=== PATIENT | female | born 1965 | race Caucasian/White ===

== ENCOUNTER 2018-07-21 10:15 | Day surgery (SDC) | payer OTHER ==
[~2018-07-21 10:15] MED LIST: Desflurane 240 ML Bottle ONE; Lactated Ringers 1,000 ML IV SCH; Sodium Chloride 0.9% 10 ML Syringe FLUSH PRN; Sodium Chloride 0.9% 2.5 ML Syringe FLUSH PRN
--- NOTE | 2018-07-21 11:25 | PCM.PREANE ---
Preanesthetic Assessment - Procedure Proposed Procedure: Colonoscopy - Anesthesia/Transfusion/Family Hx Anesthesia History: Prior Anesthesia Without Reaction Family History of Anesthesia Reaction: No Transfusion History: No Prior Transfusion(s) Intubation History: Unknown - Review of Systems General: No Symptoms Pulmonary: No Symptoms Cardiovascular: No Symptoms Gastrointestinal: Other (GERD) Neurological: No Symptoms Other: Reports: None - Physical Assessment NPO Status Date: 07/21/18 NPO Status Time: 07:30 O2 Sat by Pulse Oximetry: 98 Respiratory Rate: 16 Vital Signs: Last Vital Signs Temp 96.6 F 07/21/18 10:30 Pulse 68 07/21/18 10:30 Resp 16 07/21/18 10:30 BP 119/76 07/21/18 10:30 Pulse Ox 98 07/21/18 10:30 Height: 5 ft 6.5 in Weight: 153 lb ASA Class: 2 Mental Status: Alert & Oriented x3 Airway Class: Mallampati = 1 Dentition: Reports: Normal Dentition Thyro-Mental Finger Breadths: 3 Mouth Opening Finger Breadths: 3 ROM/Head Extension: Limited/Partial Lungs: Clear to Auscultation, Normal Respiratory Effort Cardiovascular: Regular Rate, Regular Rhythm, No Murmurs - Allergies Allergies/Adverse Reactions: Allergies Allergy/AdvReac Type Severity Reaction Status Date / Time breads Allergy Sneezing Uncoded 07/15/18 13:08 - Blood Blood Available: No Product(s) Available: None - Anesthesia Plan Pre-Op Medication Ordered: None - Acknowledgements Anesthesia Type Planned: MAC Pt an Appropriate Candidate for the Planned Anesthesia: Yes Alternatives and Risks of Anesthesia Discussed w Pt/Guardian: Yes Pt/Guardian Understands and Agrees with Anesthesia Plan: Yes PreAnesthesia Questionnaire HEENT History: Reports: Allergic Rhinitis Gastrointestinal History: Reports: GERD Genitourinary History: Reports: None TITLE MANAGER History: Reports: Hematologic History: Reports: Other (See Below) Other Hematologic History: low platelet count during - Past Surgical History Head Surgeries/Procedures: Reports: None HEENT Surgical History: Reports: None GI Surgical History: Reports: Cholecystectomy Female Surgical History: Reports: Section - SUBSTANCE USE Smoking Status *Q: Never Smoker Recreational Drug Use History: No - HOME MEDS Home Medications: Home Meds Multivitamin [Multivitamins] 1 tab PO DAILY 07/15/18 [History] Omeprazole Magnesium [Prilosec Otc] 20 mg PO ASDIRECTED PRN 07/15/18 [History] - CURRENT (IN HOUSE) MEDS Current Meds: Current Medications Lactated Ringer's (Ringers, Lactated) 1,000 mls @ 125 mls/hr IV ASDIRECTED KEVIN Last Admin: 07/21/18 10:45 Dose: 125 mls/hr Sodium Chloride (Saline Flush) 10 ml FLUSH ASDIRECTED PRN PRN Reason: Keep Vein Open Sodium Chloride (Saline Flush) 2.5 ml FLUSH ASDIRECTED PRN PRN Reason: Keep Vein Open Sodium Chloride (Saline Flush) 10 ml FLUSH ASDIRECTED PRN PRN Reason: Keep Vein Open Sodium Chloride (Saline Flush) 2.5 ml FLUSH ASDIRECTED PRN PRN Reason: Keep Vein Open Discontinued Medications Desflurane (Suprane) Confirm Administered Dose 240 ml .ROUTE .STK-MED ONE Stop: 07/20/18 07:11
[2018-07-21] MEDS ORDERED: Propofol 200 MG/20 ML SDV ONE ×2 (12:02→12:24)
[2018-07-21] MEDS ORDERED: Midazolam 1 MG/ML 2 ML SDV ONE (12:02)
--- NOTE | 2018-07-21 12:38 | PCM.OPNOTE ---
- General Post-Op/Procedure Note Date of Surgery/Procedure: 07/21/18 Operative Procedure(s): Screening colonoscopy Findings: 2 sigmoid colon polyps. Small lesions throughout the rectum that appear to be hyperplastic polyps. Biopsies taken. Pre Op Diagnosis: Screening colonoscopy Post-Op Diagnosis: Sigmoid colon polyp x 2, rectal lesion Anesthesia Technique: MAC Primary Surgeon: Ayleen Marie Condition: Good
--- NOTE | 2018-07-21 13:19 | PCM.POSTAN ---
POST ANESTHESIA ASSESSMENT - MENTAL STATUS Mental Status: Alert, Oriented - RESPIRATORY Respiratory Status: Respiratory Rate WNL, Airway Patent, O2 Saturation Stable - CARDIOVASCULAR CV Status: Pulse Rate WNL, Blood Pressure Stable - GASTROINTESTINAL GI Status: No Symptoms - POST OP HYDRATION Hydration Status: Adequate & Stable
--- NOTE | 2018-07-21 19:20 | OR ---
SURGEON: SURINDER BRIGHT MD DATE OF PROCEDURE: 07/21/2018 PREOPERATIVE DIAGNOSIS: Screening colonoscopy. POSTOPERATIVE DIAGNOSES: 1. Sigmoid colon polyps x2. 2. Rectal lesion. PROCEDURE PERFORMED: Screening colonoscopy. ANESTHESIA: MAC. INSTRUMENT USED: Olympus colonoscope. EXTENT OF EXAM: To the cecum. PREPARATION: Good. LIMITATIONS: Tortuous and redundant colon. INDICATIONS: The patient is a 53-year-old female, who presents for screening colonoscopy. We discussed the procedure, expected perioperative course, and risks including bleeding, infection, or damage to surrounding structures including perforation. The patient verbalized understanding and wishes to proceed. PROCEDURE IN DETAIL: The patient was brought to the endoscopy suite and placed in the left lateral decubitus position. A time-out was completed verifying the patient's name, age, date of , allergies, and procedure to be performed. Monitored anesthesia care was induced and continuous oxygen was provided via nasal cannula throughout the procedure. After adequate sedation was achieved, a digital rectal exam was performed. This exam was within normal limits. A well lubricated colonoscope was inserted into the rectum and advanced under direct visualization to the level of the cecum. The cecum was identified by both visual and anatomic landmarks. A photograph was taken of cecal cap; however, I was unable to retroflex the scope within the cecum due to looping of the scope more proximally. The patient had a very redundant and tortuous colon. The scope was then fully withdrawn while examining the color, texture, anatomy, and integrity of the mucosa from the cecum to the anal canal. The patient was found to have two sessile small polyps within the sigmoid colon. These were removed using a cold biopsy forceps. When I entered the rectum, the patient was noted to have a small white appearing lesions throughout the rectal wall. Random biopsies were taken of these lesions and sent, labeled as rectal biopsy. The remainder of her colonoscopic exam was normal. The scope was then retroflexed within the rectum to allow visualization of the anal canal opening. This appeared normal and a photograph was taken. The scope was then straightened out and fully withdrawn. The cecum to anus time was 10 minutes. The patient tolerated the procedure well and was taken to PACU in stable condition. ENDOSCOPIC DIAGNOSES: 1. Sigmoid colon polyps x2. 2. Rectal lesion. RECOMMENDATIONS: Follow up in clinic in 2 weeks. BORIS MORROW /[id number]
== END 2018-07-21 13:24 | disposition home or self-care (01) ==
LOC: MW.SDS 10:15
PROVIDERS: ATTEND Surgery
DX: Z12.11 Encounter for screening for malignant neoplasm of colon (principal); K63.5 Polyp of colon; K62.89 Other specified diseases of anus and rectum; K56.2 Volvulus; K21.9 Gastro-esophageal reflux disease without esophagitis; Z79.899 Other long term (current) drug therapy; Z91.018 Allergy to other foods
CPT/HCPCS: 88305; J2250; J2704; J7120